=== PATIENT | female | born 1955 | race Caucasian/White ===

== ENCOUNTER 2024-02-11 12:13 | Observation (INO) ==
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
--- NOTE | 2024-02-11 13:11 | EKG ---
Test Reason : hypertension, short of breath Blood Pressure : */* mmHG Vent. Rate : 51 BPM Atrial Rate : 51 BPM P-R Int : 162 ms QRS Dur : 94 ms QT Int : 478 ms P-R-T Axes : 76 90 84 degrees QTc Int : 440 ms Sinus bradycardia Rightward axis Low voltage QRS Incomplete right bundle branch block Cannot rule out Anterior infarct , age undetermined Abnormal ECG No previous ECGs available Confirmed by Mesfin Richards MD ([id number]) on 02/11/2024 5:34:24 PM Referred By: Confirmed By: Mesfin Richards MD
[2024-02-11 13:55] LABS: BASOPHILS # (AUTO) 0.1 X10^3/uL (0.0-0.1); BASOPHILS % (AUTO) 0.7 % (0.2-1.0); HEMATOCRIT 33.6 % (36.0-47.0); LYMPHOCYTES # (AUTO) 1.4 X10^3/uL (1.3-2.9); LYMPHOCYTES % (AUTO) 17.9 % (21.0-51.0); MEAN CORPUSCULAR HEMOGLOBIN 32.3 pg (27.0-34.0); MEAN CORPUSCULAR HGB CONC 32.8 g/dL (33.0-35.0); MEAN CORPUSCULAR VOLUME 98.5 fL (80.0-100.0); MEAN PLATELET VOLUME 8.6 fL (7.4-11.0); MONOCYTES # (AUTO) 0.6 x10^3/uL (0.3-0.8); MONOCYTES % (AUTO) 7.1 % (0.0-13.0); NEUTROPHILS # (AUTO) 5.9 x10^3/uL (2.2-4.8); NEUTROPHILS % (AUTO) 74.3 % (42.0-75.0); PLATELET COUNT 221 X10^3/uL (150.0-450.0); RED BLOOD COUNT 3.41 X10^6/uL (3.5-5.4); RED CELL DISTRIBUTION WIDTH 13.4 % (11.6-16.5); WHITE BLOOD COUNT 7.9 X10^3/uL (3.6-10.0)
--- NOTE | 2024-02-11 14:15 | VAS ---
EXAM:LOWER EXT VENOUS, UNILATERALHISTORY:LLE EDEMA;COMPARISON:NoneTECHNIQUE:Multiple north scale and color flow Doppler images of the deep venous system were obtained of the left lower extremity.FINDINGS:The deep venous system of the left lower extremity was evaluated from the level of the common femoral vein through the popliteal vein. Normal color flow and augmentation can be observed. In addition, normal compression is seen throughout the deep venous system.IMPRESSION:Negative for DVT.THIS IS AN ELECTRONICALLY VERIFIED FINAL [id number]/11/2024 2:12 PM - Electronically signed by Del Rodrigues MD
--- NOTE | 2024-02-11 14:22 | RAD ---
EXAM:CHEST, 1 VIEWHISTORY:SOB;COMPARISON:No relevant prior studies were available for comparison at the time of interpretation.TECHNIQUE:CHEST, 1 VIEWFINDINGS:Chest:Lines and tubes: Cardiac leads overlie the chest.Mediastinum: Cardiomegaly.Pulmonary vessels: There is pulmonary vascular congestion.Lung golden: No suspicious airspace opacity.Pleura: No effusion. No pneumothorax.Bones and soft tissues: No acute osseous or soft tissue abnormality.IMPRESSION:1. Findings suggest heart failureTHIS IS AN ELECTRONICALLY VERIFIED FINAL [id number]/2024 2:20 PM - Electronically signed by Michele Sequeira MD
[2024-02-11 14:44] LABS: ALANINE AMINOTRANSFERASE 30 Units/L (12-78); ALBUMIN 3.1 g/dL (3.4-5.0); ALKALINE PHOSPHATASE 107 Units/L (46-116); ASPARTATE AMINO TRANSFERASE 27 Units/L (15-37); BLOOD UREA NITROGEN 13 mg/dL (7-18); CALCIUM 8.2 mg/dL (8.5-10.1); CARBON DIOXIDE 36.1 mmol/L (21-32); CHLORIDE 105 mmol/L (98-107); COR CA(FOR HYPOALB) 8.9 mg/dL (8.5-10.1); CREATINE KINASE 48 Units/L (26-192); CREATININE 0.96 mg/dL (0.55-1.02); GLUCOSE 97 mg/dL (65-99); POTASSIUM 3.7 mmol/L (3.5-5.1); SODIUM 142 mmol/L (136-145); T4 (THYROXINE) 9.2 ug/dL (4.7-13.3); TOTAL PROTEIN 6.9 g/dL (6.4-8.2); TSH (3RD GENERATION) 1.747 uIU/mL (0.358-3.74); eGFR NON BLACK RACES > 60 (>60)
[2024-02-11] MEDS: APRESOLINE INJ 20 MG VIAL IVP ONE (14:44)
[2024-02-11] MEDS: LASIX IVP ONE (14:46)
[2024-02-11] MEDS: ZOFRAN INJ 4 MG VIAL IVP ONE (16:02)
--- NOTE | 2024-02-11 16:29 | EKG ---
Test Reason : dyspnea Blood Pressure : */* mmHG Vent. Rate : 57 BPM Atrial Rate : 57 BPM P-R Int : 180 ms QRS Dur : 100 ms QT Int : 470 ms P-R-T Axes : 64 87 94 degrees QTc Int : 457 ms Sinus bradycardia with sinus arrhythmia Incomplete right bundle branch block Nonspecific ST and T wave abnormality Abnormal ECG When compared with ECG of 11-FEB-2024 13:07, (Unconfirmed) No significant change was found Confirmed by Mesfin Richards MD ([id number]) on 02/11/2024 5:33:40 PM Referred By: Confirmed By: Mesfin Richards MD
[2024-02-11 17:03] LABS: ALANINE AMINOTRANSFERASE 33 Units/L (12-78); ALBUMIN 3.5 g/dL (3.4-5.0); ALKALINE PHOSPHATASE 116 Units/L (46-116); ASPARTATE AMINO TRANSFERASE 30 Units/L (15-37); BLOOD UREA NITROGEN 13 mg/dL (7-18); CALCIUM 8.4 mg/dL (8.5-10.1); CARBON DIOXIDE 34.1 mmol/L (21-32); CHLORIDE 103 mmol/L (98-107); CREATININE 0.99 mg/dL (0.55-1.02); GLUCOSE 107 mg/dL (65-99); SODIUM 141 mmol/L (136-145); TOTAL PROTEIN 7.6 g/dL (6.4-8.2); eGFR NON BLACK RACES 60 (>60)
[2024-02-11] MEDS ORDERED: NITROSTAT SL PRN (20:09)
[2024-02-11] MEDS: ZOFRAN INJ 4 MG VIAL ONE (20:14)
[2024-02-11] MEDS: TYLENOL 500 MG TAB EXTRA STRENGTH PO ONE (20:29)
[2024-02-11 20:56] VITALS: BMI 37.0
--- NOTE | 2024-02-11 20:59 | EKG ---
Test Reason : GARCIA, SOB, CHF exacerbation Blood Pressure : */* mmHG Vent. Rate : 59 BPM Atrial Rate : 59 BPM P-R Int : 164 ms QRS Dur : 92 ms QT Int : 518 ms P-R-T Axes : 70 83 96 degrees QTc Int : 512 ms Sinus bradycardia Incomplete right bundle branch block Nonspecific ST and T wave abnormality Prolonged QT Abnormal ECG When compared with ECG of 11-FEB-2024 16:25, QT has lengthened Confirmed by Mesfin Richards MD ([id number]) on 02/15/2024 8:14:38 AM Referred By: Confirmed By: Mesfin Richards MD
[2024-02-11] MEDS: CONSULT PHARMACY - POTASSIUM & MAGNESIUM XX SCH (23:40)
[2024-02-12] MEDS: K-DUR TAB 20 MEQ PO SCH ×2 (01:26→08:27)
[2024-02-12 05:57] LABS: BASOPHILS # (AUTO) 0.1 X10^3/uL (0.0-0.1); BASOPHILS % (AUTO) 1.1 % (0.2-1.0); HEMATOCRIT 33.7 % (36.0-47.0); HEMOGLOBIN 11.1 g/dL (12.0-16.0); LYMPHOCYTES # (AUTO) 1.9 X10^3/uL (1.3-2.9); LYMPHOCYTES % (AUTO) 25.3 % (21.0-51.0); MEAN CORPUSCULAR HEMOGLOBIN 32.3 pg (27.0-34.0); MEAN CORPUSCULAR HGB CONC 32.8 g/dL (33.0-35.0); MEAN CORPUSCULAR VOLUME 98.4 fL (80.0-100.0); MONOCYTES # (AUTO) 0.6 x10^3/uL (0.3-0.8); MONOCYTES % (AUTO) 7.9 % (0.0-13.0); NEUTROPHILS # (AUTO) 4.8 x10^3/uL (2.2-4.8); NEUTROPHILS % (AUTO) 65.7 % (42.0-75.0); PLATELET COUNT 223 X10^3/uL (150.0-450.0); RED BLOOD COUNT 3.43 X10^6/uL (3.5-5.4); RED CELL DISTRIBUTION WIDTH 13.3 % (11.6-16.5); WHITE BLOOD COUNT 7.4 X10^3/uL (3.6-10.0)
[2024-02-12 06:15] LABS: ALANINE AMINOTRANSFERASE 28 Units/L (12-78); ALBUMIN 3.1 g/dL (3.4-5.0); ALKALINE PHOSPHATASE 102 Units/L (46-116); ASPARTATE AMINO TRANSFERASE 25 Units/L (15-37); BLOOD UREA NITROGEN 15 mg/dL (7-18); CALCIUM 8.4 mg/dL (8.5-10.1); CHLORIDE 104 mmol/L (98-107); CHOL/HDL RATIO 3.1 (0.0-5.0); CHOLESTEROL 120 mg/dL (0-200); COR CA(FOR HYPOALB) 9.1 mg/dL (8.5-10.1); CREATININE 0.92 mg/dL (0.55-1.02); GLUCOSE 94 mg/dL (65-99); HDL CHOLESTEROL 39 mg/dL (40-60); MAGNESIUM 1.9 mg/dL (2.0-2.9); POTASSIUM 3.2 mmol/L (3.5-5.1); SODIUM 142 mmol/L (136-145); TOTAL PROTEIN 6.9 g/dL (6.4-8.2); TRIGLYCERIDES 71 mg/dL (0-150); eGFR NON BLACK RACES > 60 (>60)
[2024-02-12] MEDS ORDERED: CONSULT PHARMACY - POTASSIUM & MAGNESIUM XX SCH (07:00)
[2024-02-12] MEDS: ZESTRIL TAB 10 MG PO SCH (08:26)
[2024-02-12] MEDS: MAG-OX TAB PO SCH (08:27)
[2024-02-12] MEDS: LASIX IVP SCH (08:28)
[2024-02-12] MEDS: ASPIRIN PO SCH (08:28)
--- NOTE | 2024-02-12 15:41 | NM ---
EXAM: LIMITED NUCLEAR MEDICINE PERFUSION LUNG EXAMHISTORY: Shortness of breath. High blood pressure. History of pulmonary embolism.COMPARISON: CXR dated February 11, 2024TECHNIQUE: A nuclear medicine perfusion scan was then performed with the administration of 5.8 millicuries of technetium 99 MAA intravenously. Imaging was performed with multiple projections of the perfusion scan.FINDINGS:The exam is limited; perfusion scan only. No ventilation scan submitted for interpretation.There is a large central defect corresponding to moderate to severe cardiomegaly seen on CXR.There is no gross subsegmental, segmental, or lobar perfusion defect reminiscent of pulmonary embolic disease seen. Considered negative perfusion lung scan.Consider follow-up evaluation with a CTA chest for optimal assessment if the patient can tolerate the procedure and there is sufficiently high clinical suspicion.IMPRESSION:1. Cardiomegaly.2. Otherwise negative Perfusion lung scan.3. Consider follow-up evaluation with a CTA chest for optimal assessment if the patient can tolerate the procedure and there is sufficiently high clinical suspicion.THIS IS AN ELECTRONICALLY VERIFIED FINAL [id number]/12/2024 3:38 PM - Electronically signed by Clemente Solano MD
[2024-02-12 19:56] VITALS: RESP 18
[2024-02-13 06:23] LABS: BASOPHILS # (AUTO) 0.1 X10^3/uL (0.0-0.1); BASOPHILS % (AUTO) 0.8 % (0.2-1.0); HEMATOCRIT 33.8 % (36.0-47.0); HEMOGLOBIN 11.4 g/dL (12.0-16.0); LYMPHOCYTES # (AUTO) 1.4 X10^3/uL (1.3-2.9); LYMPHOCYTES % (AUTO) 20.8 % (21.0-51.0); MEAN CORPUSCULAR HEMOGLOBIN 33.1 pg (27.0-34.0); MEAN CORPUSCULAR HGB CONC 33.6 g/dL (33.0-35.0); MEAN CORPUSCULAR VOLUME 98.7 fL (80.0-100.0); MEAN PLATELET VOLUME 8.8 fL (7.4-11.0); MONOCYTES # (AUTO) 0.6 x10^3/uL (0.3-0.8); MONOCYTES % (AUTO) 8.2 % (0.0-13.0); NEUTROPHILS # (AUTO) 4.7 x10^3/uL (2.2-4.8); NEUTROPHILS % (AUTO) 70.2 % (42.0-75.0); PLATELET COUNT 193 X10^3/uL (150.0-450.0); RED BLOOD COUNT 3.43 X10^6/uL (3.5-5.4); RED CELL DISTRIBUTION WIDTH 13.5 % (11.6-16.5); WHITE BLOOD COUNT 6.8 X10^3/uL (3.6-10.0)
[2024-02-13 06:41] LABS: ALANINE AMINOTRANSFERASE 22 Units/L (12-78); ALKALINE PHOSPHATASE 98 Units/L (46-116); ASPARTATE AMINO TRANSFERASE 20 Units/L (15-37); BLOOD UREA NITROGEN 16 mg/dL (7-18); CALCIUM 8.1 mg/dL (8.5-10.1); CARBON DIOXIDE 38.1 mmol/L (21-32); CHLORIDE 104 mmol/L (98-107); COR CA(FOR HYPOALB) 8.9 mg/dL (8.5-10.1); CREATININE 1.01 mg/dL (0.55-1.02); GLUCOSE 93 mg/dL (65-99); MAGNESIUM 2.1 mg/dL (2.0-2.9); POTASSIUM 3.3 mmol/L (3.5-5.1); SODIUM 142 mmol/L (136-145); TOTAL PROTEIN 6.6 g/dL (6.4-8.2); eGFR NON BLACK RACES 58 (>60)
[2024-02-13] MEDS ORDERED: CONSULT PHARMACY - POTASSIUM & MAGNESIUM XX SCH (07:00)
[2024-02-13 07:32] VITALS: BP 168/80; PULSE 65; TEMP 98.1; O2SAT 93
[2024-02-13] MEDS: K-DUR TAB 20 MEQ PO SCH (08:18)
[2024-02-13] MEDS: LOPRESSOR TAB 50 MG PO SCH (09:39)
[2024-02-13] MEDS: PLAQUENIL PO SCH (09:40)
[2024-02-13] MEDS: PROTONIX TAB 40 MG PO SCH (09:40)
[2024-02-13] MEDS: CELEXA PO SCH (09:56)
[2024-02-13] MEDS ORDERED: ZOCOR TAB 10 MG PO SCH (21:00)
--- NOTE | 2024-02-15 07:59 | RAD ---
EXAMINATION: CHEST, 1 VIEW HISTORY: CHF, GARCIA, SOB; . COMPARISON STUDY: Chest x-ray 02/11/2024 TECHNIQUE: Single semi-erect AP view of the chest FINDINGS: Lungs are expanded. Patchy bibasilar infiltrates. [id number] cardiac silhouette enlargement. Normal pulmonary vascular pattern. Bones are intact. IMPRESSION: Patchy infiltrates in the pulmonary bases. Cardiac silhouette enlargement. THIS IS AN ELECTRONICALLY VERIFIED FINAL REPORT 02/15/2024 7:55 AM - Electronically signed by Aimee Frias MD
== END 2024-02-13 10:35 | disposition home or self-care (01) ==
LOC: MED/SURG 12:13 → ER 12:13 → MED/SURG 20:38
PROVIDERS: ADMIT Obstetrics & Gynecology Obstetrics; ATTEND Obstetrics & Gynecology Obstetrics

== ENCOUNTER 2025-01-16 11:23 | Inpatient (IN) ==
--- NOTE | 2025-01-16 11:40 | EKG ---
Test Reason : chest pain Blood Pressure : */* mmHG Vent. Rate : 128 BPM Atrial Rate : * BPM P-R Int : * ms QRS Dur : 90 ms QT Int : 272 ms P-R-T Axes : * 87 54 degrees QTc Int : 397 ms Atrial fibrillation with rapid ventricular response Low voltage QRS Nonspecific T wave abnormality Abnormal ECG When compared with ECG of 11-FEB-2024 20:43, Atrial fibrillation has replaced Sinus rhythm Vent. rate has increased BY 69 BPM Confirmed by Mesfin Richards MD ([id number]) on 01/17/2025 5:50:22 AM Referred By: Confirmed By: Mesfin Richards MD
[2025-01-16 11:44] LABS: MEAN PLATELET VOLUME 7.9 fL (7.4-11.0); RED CELL DISTRIBUTION WIDTH 13.0 % (11.6-16.5)
[2025-01-16 11:48] VITALS: BMI 38.7
[2025-01-16] MEDS: ELIQUIS PO SCH (11:52)
[2025-01-16] MEDS: LOPRESSOR INJ 5 MG AMP IVP ONE (11:52)
--- NOTE | 2025-01-16 11:54 | DR.CP ---
HPI Time Seen Time Seen by Provider: 01/16/25 11:42 PCP Primary Care Physician: Complaint Chief Complaint Doctor Comments: Patient with complaint of chest pain, shortness of breath and getting lightheaded over the last 4 days to a week. Patient's heart rate has gone up to 180 at home. Denies fever. Chief Complaint:: pt states that she has been having chest pain x4 days, SOB x1week and has been feeling dizzy. states that her heart rate has gotten up to 180 at home. COVID-19 Coronavirus risk:travel/contact w/high risk person: No Has patient experienced Coronavirus symptoms: No Source History Provided: Patient Mode of Arrival Mode of Arrival: Ambulatory Timing Onset of Chief Complaint: 01/09/25 PMH PMH Past Medical History: Yes Past Medical History: Anxiety, Depression, GERD and Hypertension Past Surgical History: Yes Surgical History: Cholecystectomy Family History History of Family Medical Conditions: Yes Family Medical History: Cancer, Coronary Artery Disease and Hypertension Social History Type of Tobacco Use: None Alcohol Use: None Do you use any recreational Drugs:: No Lives With: Spouse Lives Where: Home Travel Risk Coronavirus risk:travel/contact w/high risk person: No Has patient experienced Coronavirus symptoms: No Infectious screening Have you traveled outside the country in the last 6 months?: No Isolation: Standard ROS Review of Systems Constitutional: No Symptoms Reported Eyes: No Symptoms Reported ENTM: No Symptoms Reported Respiratoy: See HPI and Short of Breath; negative Wheezing Cardiovascular: See HPI, Chest Pain and Palpitations; negative Edema or Syncope Gastrointestinal/Abdominal: No Symptoms Reported Genitourinary: No Symptoms Reported Neurological: No Symptoms Reported Musculoskeletal: No Symptoms Reported Integumentary: No Symptoms Reported Hematologic/Lymphatic: No Symptoms Reported Endocrine: No Symptoms Reported Psychiatric: No Symptoms Reported All Other Systems: Reviewed and Negative PE Vitals Vitals: Vital Signs Temperature 98.3 F Pulse Rate 85 Pulse Rate 91 Pulse Rate 87 Pulse Rate 95 Pulse Rate 97 Pulse Rate 104 Pulse Rate 102 Pulse Rate 116 Pulse Rate 118 Pulse Rate 121 Pulse Rate 125 Pulse Rate 122 Pulse Rate 125 Pulse Rate 123 Pulse Rate 126 Pulse Rate 125 Pulse Rate 125 Pulse Rate 130 Pulse Rate 123 Respiratory Rate 19 Respiratory Rate 19 Respiratory Rate 20 Respiratory Rate 21 Respiratory Rate 22 Respiratory Rate 31 Respiratory Rate 25 Respiratory Rate 26 Respiratory Rate 26 Respiratory Rate 25 Respiratory Rate 22 Respiratory Rate 24 Respiratory Rate 25 Respiratory Rate 41 Respiratory Rate 54 Respiratory Rate 28 Respiratory Rate 22 Respiratory Rate 31 Blood Pressure 107/66 Blood Pressure 104/58 Blood Pressure 127/62 Blood Pressure 119/62 Blood Pressure 124/65 Blood Pressure 111/72 Blood Pressure 151/74 Blood Pressure 174/96 Blood Pressure 174/96 Blood Pressure 126/76 Blood Pressure 125/92 Blood Pressure 125/92 Blood Pressure 119/89 Blood Pressure 119/89 O2 Sat by Pulse Oximetry 91 O2 Sat by Pulse Oximetry 89 O2 Sat by Pulse Oximetry 91 O2 Sat by Pulse Oximetry 90 O2 Sat by Pulse Oximetry 94 O2 Sat by Pulse Oximetry 93 O2 Sat by Pulse Oximetry 95 O2 Sat by Pulse Oximetry 94 O2 Sat by Pulse Oximetry 93 O2 Sat by Pulse Oximetry 98 O2 Sat by Pulse Oximetry 93 O2 Sat by Pulse Oximetry 96 O2 Sat by Pulse Oximetry 94 O2 Sat by Pulse Oximetry 93 O2 Sat by Pulse Oximetry 94 O2 Sat by Pulse Oximetry 95 O2 Sat by Pulse Oximetry 95 O2 Sat by Pulse Oximetry 94 General Limitations: No Limitations General Appearance: Alert and In No Apparent Distress Head Head Exam: Normal Inspection Eyes Eye exam: Normal Appearance ENT ENT Exam: Normal Exam Chest Chest Inspection: Normal Inspection Respiratory Respiratory Exam: Normal Lung Sounds Bilat Cardiovascular Cardiovascular Exam: Tachycardia and Irregular Rhythm Pulse: Normal Edema: Normal Abdominal Exam Abdominal Exam: Normal Inspection, Normal Bowel Sounds and Soft Extremities Extremities Exam: Normal Inspection Back Back Exam: Normal Inspection Neurologic Neurological Exam: Alert and Oriented X3 Psychiatric Psychiatric Exam: Normal Affect and Normal Mood Skin Skin Exam: Warm, Dry, Intact and Normal Color COURSE Treatment Treatment: Discussed results of workup with patient. Patient agreeable with admission. Patient feeling better since Cardizem drip started. Consultation Called: 15:09 Consultation Comments: Discussed case with Dr. Lentz and he is agreeable to admission.Patient has elevated D-dimer but already on Eliquis and Dr. Lentz will await results of CTA of the chest. ROR Labs Reviewed Laboratory Results Reviewed?: Yes 01/16/25 11:35 01/16/25 11:35 Laboratory: WBC 7.7 X10^3/uL (3.6-10.0) 01/16/25 11:35 RBC 3.59 X10^6/uL (3.5-5.4) 01/16/25 11:35 Hgb 11.7 g/dL (12.0-16.0) L 01/16/25 11:35 Hct 34.8 % (36.0-47.0) L 01/16/25 11:35 MCV 96.9 fL (80.0-100.0) 01/16/25 11:35 MCH 32.6 pg (27.0-34.0) 01/16/25 11:35 MCHC 33.6 g/dL (33.0-35.0) 01/16/25 11:35 RDW 13.0 % (11.6-16.5) 01/16/25 11:35 Plt Count 232 X10^3/uL (150.0-450.0) 01/16/25 11:35 MPV 7.9 fL (7.4-11.0) 01/16/25 11:35 Neut % (Auto) 62.8 % (42.0-75.0) 01/16/25 11:35 Lymph % (Auto) 29.7 % (21.0-51.0) 01/16/25 11:35 [place] % (Auto) 6.5 % (0.0-13.0) 01/16/25 11:35 Eos % (Auto) 0.1 % (0.9-2.9) L 01/16/25 11:35 Baso % (Auto) 0.9 % (0.2-1.0) 01/16/25 11:35 Neut # (Auto) 4.8 x10^3/uL (2.2-4.8) 01/16/25 11:35 Lymph # (Auto) 2.3 X10^3/uL (1.3-2.9) 01/16/25 11:35 [place] # (Auto) 0.5 x10^3/uL (0.3-0.8) 01/16/25 11:35 Eos # (Auto) 0.0 x10^3/uL (0.0-0.2) 01/16/25 11:35 Baso # (Auto) 0.1 X10^3/uL (0.0-0.1) 01/16/25 11:35 Absolute Nucleated RBC 0.1 /100WBC 01/16/25 11:35 PT 13.3 SECONDS (11.8-14.3) 01/16/25 11:35 INR Target Range - 09/22/25 11:35 INR 1.00 (0.8-1.3) 01/16/25 11:35 APTT 26.4 SECONDS (22.9-36.5) 01/16/25 11:35 PTT Comment - 01/16/25 11:35 D-Dimer 1.06 ug/ml (0.0-0.57) H 01/16/25 11:35 Sodium 144 mmol/L (136-145) 01/16/25 11:35 Corrected Sodium TNP 01/16/25 11:35 Potassium 3.2 mmol/L (3.5-5.1) L 01/16/25 11:35 Chloride 105 mmol/L (98-107) 01/16/25 11:35 Carbon Dioxide 33.3 mmol/L (21-32) H 01/16/25 11:35 BUN 12 mg/dL (7-18) 01/16/25 11:35 Creatinine 1.27 mg/dL (0.55-1.02) H 01/16/25 11:35 Est GFR (MDRD) Af Amer 54 (>60) L 01/16/25 11:35 Est GFR (MDRD) Non-Af 45 (>60) L 01/16/25 11:35 Glucose 93 mg/dL (65-99) 01/16/25 11:35 Calcium 8.6 mg/dL (8.5-10.1) 01/16/25 11:35 Corrected Calcium 9.2 mg/dL (8.5-10.1) 01/16/25 11:35 Total Bilirubin 0.40 mg/dL (0.2-1.0) 01/16/25 11:35 AST 29 Units/L (15-37) 01/16/25 11:35 ALT 35 Units/L (12-78) 01/16/25 11:35 Alkaline Phosphatase 92 Units/L (46-116) 01/16/25 11:35 Creatine Kinase 54 Units/L (26-192) 01/16/25 11:35 Troponin I High Sens 11.6 ng/L (4.0-60.0) 01/16/25 13:32 B-Natriuretic Peptide 687 pg/mL (0-79) H 01/16/25 11:35 Total Protein 7.1 g/dL (6.4-8.2) 01/16/25 11:35 Albumin 3.2 g/dL (3.4-5.0) L 01/16/25 11:35 Globulin 3.9 g/dL (2.5-4.5) 01/16/25 11:35 Albumin/Globulin Ratio 0.8 Ratio (1.1-2.1) L 01/16/25 11:35 Other Results Comments: [id number] 1955 Sex: F Location: ER Order Number(s): [id number] Procedure(s):CHEST, 1 VIEW X-RAY Ordering Physician: Dario Nino Primary Care: RENUKA MURRIETA Service Date: 01/16/25 Service Time: 1127 EXAM: CHEST, 1 VIEW HISTORY: CHEST PAIN ; COMPARISON: 02/13/2024 TECHNIQUE: AP .br.br.br technique. No focal consolidation, pleural effusion, or visible pneumothorax. IMPRESSION: No acute cardiopulmonary findings. THIS IS AN ELECTRONICALLY VERIFIED FINAL REPORT 01/16/2025 12:34 PM - Electronically signed by Andre Collier MD EKG Rate: 128 [place]: Normal Rhythm: Afib Block: None Hypertrophy: None ST: Normal Opioid Opioid Risk Tool Age (Naseem box if 16-45): No History of Preadolescent Sexual Abuse: No Total: 0 Total Score Risk Category: Low Risk Copyright: [facility] predicting aberrant behaviors Discharge Plan Diagnosis Discharge Problem: Atrial fibrillation with RVR, Hypokalemia, D-dimer, elevated Discharge Plan Patient Disposition: ADMITTED INPATIENT Condition: Stable Prescriptions: No Action gabapentin 300 mg capsule 300 mg PO TID simvastatin 10 mg tablet 10 mg PO QPM citalopram [Celexa] 40 mg Tablet 40 mg PO DAILY hydroxychloroquine 200 mg tablet 200 mg PO BID Health Concerns: Post Hospitalization: new medications and changes needed to prevent readmission or further decline. Pt educated and given instructions on all concerns. Plan of Treatment: Continue with present treatment and follow up plan. Pt is to keep follow up appointment as instructed and take medications as ordered. Orders to Discharge Patient Discharge Orders: Transfer (Routine); Ordered 01/16/25 Ordered By: Dario Nino Follow ups/Referrals Follow ups/Referrals: RENUKA MURRIETA [Primary Care Provider] - 3 days Instructions Stand Alone Forms: Find Help Web Site, Post Hospital Follow Up Care Print Language: TONGAN
[2025-01-16 11:59] LABS: COR CA(FOR HYPOALB) 9.2 mg/dL (8.5-10.1); CREATININE 1.27 mg/dL (0.55-1.02); eGFR NON BLACK RACES 45 (>60)
[2025-01-16 12:01] LABS: INR 1.00 (0.8-1.3)
--- NOTE | 2025-01-16 12:37 | RAD ---
EXAM: CHEST, 1 VIEW HISTORY: CHEST PAIN ; COMPARISON: 02/13/2024 TECHNIQUE: AP .br.br.br technique. No focal consolidation, pleural effusion, or visible pneumothorax. IMPRESSION: No acute cardiopulmonary findings. THIS IS AN ELECTRONICALLY VERIFIED FINAL REPORT 01/16/2025 12:34 PM - Electronically signed by Andre Collier MD
[2025-01-16] MEDS: CARDIZEM INJ 125 MG VIAL 125 MG in NS 100 ML IV 100 ML IV PRN (13:08)
--- NOTE | 2025-01-16 15:38 | CT ---
EXAM: CT PULMONARY ANGIOGRAM CHEST WITH CONTRAST (PE PROTOCOL) HISTORY: DYSPNEA, ELEV D DIMER; COMPARISON: None. TECHNIQUE: Axial CT images were obtained through the chest after the intravenous administration of contrast. Coronal and sagittal reformatted images were included. Maximum intensity projection (MIP) images were performed per pulmonary angiogram protocol. All CT scans at this facility use dose modulation, iterative reconstruction, and/or weight based dosing when appropriate to reduce radiation dose to as low as reasonably achievable. FINDINGS: PULMONARY ARTERIES: No filling defects in the pulmonary arteries to suggest emboli. Pulmonary artery trunk diameter measures 4.3 cm suggesting pulmonary arterial hypertension. CARDIOVASCULAR: The contrast bolus density within the thoracic aorta does not allow for accurate evaluation of dissection. No thoracic aortic aneurysm. 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 Cardiomegaly. PERICARDIAL EFFUSION: None. LYMPH NODES: No pathologically enlarged nodes. PLEURAL SPACES: No evidence for pleural effusion.No evidence for pneumothorax. LUNGS: Mild ground-glass haziness throughout the lung golden bilaterally is nonspecific and may be due to interstitial edema or interstitial pneumonitis, correlate clinically. Thin linear band of scarring or atelectasis in the left lower lobe. AIRWAYS: The larger central visualized airways demonstrate no evidence for endobronchial filling defects. UPPER ABDOMEN: No acute findings. BONES: Degenerative changes of the spine. IMPRESSION: No evidence of pulmonary arterial embolism. Pulmonary artery trunk diameter measures 4.3 cm suggesting pulmonary arterial hypertension. 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 Cardiomegaly. Mild ground-glass haziness throughout the lung golden bilaterally is nonspecific and may be due to interstitial edema or interstitial pneumonitis, correlate clinically. THIS IS AN ELECTRONICALLY VERIFIED FINAL REPORT 01/16/2025 3:35 PM - Electronically signed by Michele Carpenter DO
[2025-01-16] MEDS ORDERED: ULTRAM PO PRN (16:32)
[2025-01-16] MEDS ORDERED: TYLENOL 325 MG TAB PO PRN (16:32)
[2025-01-16] MEDS ORDERED: ZOFRAN INJ 4 MG VIAL IVP PRN (16:32)
[2025-01-16] MEDS: OMNIPAQUE 350 mg/mL 100 mL BTL 100 ML ONE (16:56)
[2025-01-16] MEDS: OMNIPAQUE 350 mg/mL 50 mL BTL 50 ML ONE (16:57)
[2025-01-16] MEDS: CARDIZEM INJ 125 MG VIAL ONE (16:57)
[2025-01-16] MEDS: NS 100 ML IV 100 ML ONE (16:58)
[2025-01-16] MEDS: CONSULT PHARMACY - POTASSIUM & MAGNESIUM XX SCH (17:10)
[2025-01-16] MEDS: TOPROL XL PO SCH (17:38)
[2025-01-16] MEDS: TOPROL XL PO ONE (17:54)
[2025-01-16] MEDS: K-DUR TAB 20 MEQ PO SCH (17:59)
[2025-01-16] MEDS: NORCO 5/325 MG TAB PO PRN (20:51)
[2025-01-16] MEDS: ZOCOR TAB 10 MG PO SCH (20:51)
[2025-01-17 04:42] LABS: MEAN PLATELET VOLUME 7.9 fL (7.4-11.0); RED CELL DISTRIBUTION WIDTH 13.2 % (11.6-16.5)
[2025-01-17 04:58] LABS: COR CA(FOR HYPOALB) 9.0 mg/dL (8.5-10.1); CREATININE 1.13 mg/dL (0.55-1.02); eGFR NON BLACK RACES 51 (>60)
[2025-01-17] MEDS ORDERED: TOPROL XL PO ONE (07:28)
[2025-01-17] MEDS ORDERED: CELEXA ONE (07:34)
[2025-01-17] MEDS: CELEXA PO SCH (08:50)
[2025-01-17] MEDS: TOPROL XL PO ONE (10:35)
[2025-01-17] MEDS: NEURONTIN CAP 300 MG PO SCH (10:36)
[2025-01-17] MEDS: LOPRESSOR TAB 50 MG PO ONE (14:51)
[2025-01-17] MEDS: LASIX PO ONE (14:51)
[2025-01-17] MEDS: LOPRESSOR INJ 5 MG AMP IVP ONE (17:41)
[2025-01-17] MEDS: PHARMACY CONSULT XX SCH (19:20)
[2025-01-17] MEDS ORDERED: CORDARONE TAB 200 MG PO SCH (20:00)
[2025-01-17] MEDS: LOPRESSOR TAB 25 MG PO ONE (20:06)
[2025-01-17] MEDS: CARDIZEM INJ 125 MG VIAL 125 MG in NS 100 ML IV 100 ML IV PRN (20:11)
[2025-01-17] MEDS: PLAQUENIL PO SCH (21:42)
[2025-01-18] MEDS: LOPRESSOR TAB 25 MG PO SCH ×2 (01:26→21:36)
[2025-01-18 05:59] LABS: MEAN PLATELET VOLUME 8.1 fL (7.4-11.0); RED CELL DISTRIBUTION WIDTH 13.4 % (11.6-16.5)
[2025-01-18 06:16] LABS: COR CA(FOR HYPOALB) 9.2 mg/dL (8.5-10.1); COR NA(FOR HYPERGLY) 143 mmol/L (136-145); CREATININE 1.10 mg/dL (0.55-1.02); TSH (3RD GENERATION) 0.766 uIU/mL (0.358-3.74); eGFR NON BLACK RACES 53 (>60)
[2025-01-18] MEDS: LEXAPRO PO SCH (08:22)
[2025-01-18] MEDS: LEXAPRO ONE (08:27)
[2025-01-18] MEDS ORDERED: TOPROL XL PO SCH (09:00)
[2025-01-18] MEDS: LASIX IVP ONE (14:08)
[2025-01-18] MEDS: K-DUR TAB 20 MEQ PO ONE (14:08)
[2025-01-18] MEDS: PROTONIX INJ 40 MG VIAL IVP ONE (14:09)
[2025-01-18] MEDS: NEXTERONE IV 150 MG PREMIX* 150 MG/100 ML BAG IV ONE (14:40)
[2025-01-18] MEDS: DRUG FILTER EXTENSION SET ONE (14:40)
--- NOTE | 2025-01-18 14:44 | DR.CONSULT ---
CONSULT Consultation for Day of: Date: 01/18/25 Chief Complaint Chief Complaint: sob/fast hr Allergies Allergies Allergy/AdvReac Type Severity Reaction Status Date / Time baclofen Allergy Verified 01/17/25 17:02 Influenza Virus Vaccines Allergy Verified 01/17/25 17:02 prednisone Allergy Verified 01/17/25 17:02 Sulfa (Sulfonamide Allergy Verified 01/17/25 17:02 Antibiotics) (SULFA) History of Present Illness History of Present Illness: 69 yo female- cath 2020 w/o cad- has htn heart disease/pulm htn/diastolic chf when bp up- admitted for sob /fasr=t hr- found to be in afib- put on bb/ccb/doac- po lasix given Past Medical History Past Medical History: Anxiety, Depression, GERD and Hypertension Past Surgical History Surgical History: Cholecystectomy Family History Family Medical History: Diabetes Mellitus, Coronary Artery Disease and Hypertension Social History Does patient currently use any type of tobacco product: No Have you used tobacco products in the last 12 months: No Type of Tobacco Use: None Alcohol Use: None Drug Use: None Medications Home Medications: baclofen Allergy (Verified 01/17/25 17:02) Influenza Virus Vaccines Allergy (Verified 01/17/25 17:02) prednisone Allergy (Verified 01/17/25 17:02) Sulfa (Sulfonamide Antibiotics) (SULFA) Allergy (Verified 01/17/25 17:02) CONTINUE taking the following medications hydroxychloroquine 200 mg tablet 200 mg PO BID 01/16/25 [History] furosemide 20 mg tablet (Lasix) 20 mg PO QAM 01/17/25 [History] pantoprazole 40 mg tablet,delayed release 40 mg PO QDAY 01/17/25 [History] New Prescriptions apixaban 5 mg tablet (Eliquis) 5 mg PO BID #60 tabs 01/17/25 [Rx] escitalopram oxalate 20 mg tablet 20 mg PO QDAY #30 tabs 01/17/25 [Rx] metoprolol succinate 100 mg tablet,extended release 24 hr 150 mg (1.5 x 100 mg) PO DAILY #45 tabs 01/17/25 [Rx] Physical Exam Vital Signs: Vital Signs Temperature 97.9 F Temperature 97.9 F Temperature 97.9 F Pulse Rate 90 Pulse Rate 90 Pulse Rate 90 Pulse Rate 79 Pulse Rate 71 Pulse Rate 77 Pulse Rate 73 Pulse Rate 73 Pulse Rate 82 Pulse Rate 76 Pulse Rate 78 Pulse Rate 73 Pulse Rate 79 Pulse Rate 91 Pulse Rate 72 Pulse Rate 64 Pulse Rate 79 Pulse Rate 67 Pulse Rate 68 Pulse Rate 75 Pulse Rate 72 Pulse Rate 75 Pulse Rate 66 Pulse Rate 76 Pulse Rate 75 Pulse Rate 73 Pulse Rate 71 Pulse Rate 73 Pulse Rate 65 Respiratory Rate 43 Respiratory Rate 43 Respiratory Rate 32 Respiratory Rate 25 Respiratory Rate 21 Respiratory Rate 22 Respiratory Rate 23 Respiratory Rate 25 Respiratory Rate 22 Respiratory Rate 29 Respiratory Rate 32 Respiratory Rate 30 Respiratory Rate 40 Respiratory Rate 24 Respiratory Rate 36 Respiratory Rate 22 Respiratory Rate 36 Respiratory Rate 31 Respiratory Rate 30 Respiratory Rate 31 Respiratory Rate 32 Respiratory Rate 31 Respiratory Rate 28 Respiratory Rate 36 Respiratory Rate 41 Respiratory Rate 30 Respiratory Rate 27 Respiratory Rate 30 Respiratory Rate 30 Blood Pressure 123/85 Blood Pressure 123/85 Blood Pressure 116/90 Blood Pressure 118/80 Blood Pressure 142/97 Blood Pressure 133/92 Blood Pressure 133/92 Blood Pressure 123/86 Blood Pressure 123/86 O2 Sat by Pulse Oximetry 99 O2 Sat by Pulse Oximetry 99 O2 Sat by Pulse Oximetry 96 O2 Sat by Pulse Oximetry 97 O2 Sat by Pulse Oximetry 97 O2 Sat by Pulse Oximetry 95 O2 Sat by Pulse Oximetry 97 O2 Sat by Pulse Oximetry 97 O2 Sat by Pulse Oximetry 97 O2 Sat by Pulse Oximetry 97 O2 Sat by Pulse Oximetry 96 O2 Sat by Pulse Oximetry 98 O2 Sat by Pulse Oximetry 99 O2 Sat by Pulse Oximetry 99 O2 Sat by Pulse Oximetry 97 O2 Sat by Pulse Oximetry 98 O2 Sat by Pulse Oximetry 99 O2 Sat by Pulse Oximetry 98 O2 Sat by Pulse Oximetry 99 O2 Sat by Pulse Oximetry 99 O2 Sat by Pulse Oximetry 99 O2 Sat by Pulse Oximetry 99 O2 Sat by Pulse Oximetry 82 O2 Sat by Pulse Oximetry 89 O2 Sat by Pulse Oximetry 97 O2 Sat by Pulse Oximetry 95 mild sob mild wheeze irreg irreg few crackles 2/6 hsm mild edema labs: hct 34, d dimer 1.06 cr 1. tsh 0.7 ekg: afib echo: ef 45% mild/mod mr /flat septal motion from pa- elevated pa 50 big B atriums cxr: nad CTA: no clot/big PA c/w pulm HTN Plan (1) Atrial fibrillation with RVR: Status: Acute Plan: cut back BB due to wheezing/resptx- lasix- cont doc/ccb- add amio iv as big atrium bilaterally to help keep in sinus hopefully- marlene/cv tommorrow if still in afib (2) Hypertension: Status: Acute Plan: add back kevin that she took as outpt (3) Mitral regurgitation: Status: Acute Plan: lower bp w kevin/diuresis (4) Pulmonary hypertension: Status: Acute (5) Wheezing: Status: Acute Plan: diuresis/RT
[2025-01-18] MEDS: NEXTERONE IV 360 MG PREMIX* 360 MG/200 ML BAG IV PRN ×2 (14:57→21:21)
[2025-01-18] MEDS: ZOFRAN TAB 4 MG PO PRN (16:10)
[2025-01-18] MEDS: ZESTRIL TAB 10 MG PO SCH (21:36)
[2025-01-19 06:44] LABS: MEAN PLATELET VOLUME 7.9 fL (7.4-11.0); RED CELL DISTRIBUTION WIDTH 13.1 % (11.6-16.5)
[2025-01-19 06:53] LABS: COR CA(FOR HYPOALB) 8.6 mg/dL (8.5-10.1); CREATININE 1.61 mg/dL (0.55-1.02); eGFR NON BLACK RACES 34 (>60)
[2025-01-19] MEDS ORDERED: CORDARONE TAB 200 MG PO SCH (09:00)
[2025-01-19] MEDS: XOPENEX 1.25 MG/3 ML NEBULE NEB PRN (11:22)
--- NOTE | 2025-01-19 14:06 | CARDIOVERT ---
Cardioversion Note Date of Procedure: Date: 01/19/25 Note Cardioversion note: precardioversion DX: afib postcardioversion DX: sinus bradycardia Anesthesia per anesthesia Procedure: consent obtained. Once anesthesia kicked in, standard ANIBAL was preformed ruling out contraindication. 300 J of synchronous electricity was applied to chest converting her to sinus bradycardia- To note: with anesthesia she stopped breathing for awhile- her echo had PA pressures close to 60 and enlarged r heart- no doubt SALENA contributing to afib and needs to be quickly addressed. no complications . talking/moving all 4 post procedure. Final impression: Successful CV to sinus Plan: continue amiodorone/cont doac- keep bp under control and treat SALENA to help prevent recurrence.
--- NOTE | 2025-01-19 14:11 | NOTE.SOAP ---
Soap Note Note for Day of Date of Exam: 01/19/25 Subjective Data Subjective Data: successful CV to nsr- no doubt sleep apnea playing large part of afib Assessment Assessment: afib: s/p cv, SALENA- pulm htn/big R heart /htn Plan Plan: Continue doac/amio load 200 bid for month- needs sleep apnea study and treatment breanna, f/u me in few weeks
[2025-01-19] MEDS: CORDARONE TAB 200 MG PO SCH (17:50)
[2025-01-19] MEDS: NS 500 ML IV 500 ML IV ONE ×3 (18:10→18:51)
[2025-01-19] MEDS: NS 1,000 ML IV 1,000 ML ONE (18:50)
[2025-01-19] MEDS: DIPRIVAN VIAL 20 ML ONE (18:51)
[2025-01-20 05:03] LABS: MEAN PLATELET VOLUME 8.3 fL (7.4-11.0); RED CELL DISTRIBUTION WIDTH 13.2 % (11.6-16.5)
[2025-01-20 05:24] LABS: COR CA(FOR HYPOALB) 9.3 mg/dL (8.5-10.1); COR NA(FOR HYPERGLY) 143.0 mmol/L (136-145); CREATININE 1.61 mg/dL (0.55-1.02); eGFR NON BLACK RACES 34.0 (>60)
[2025-01-20] MEDS: LEXAPRO ONE (09:51)
[2025-01-20 12:27] VITALS: BP 119/63; PULSE 60; RESP 24; O2SAT 92
[2025-01-20 14:24] VITALS: TEMP 98.8
== END 2025-01-20 13:55 | disposition home or self-care (01) | DRG 309 ==
LOC: ER 11:23 → ICU 15:47 → INTOOBSV 15:47 → ICU 16:10
PROVIDERS: ADMIT Obstetrics & Gynecology Obstetrics; ATTEND Obstetrics & Gynecology Obstetrics
DX: R06.2 Wheezing; R79.1 Abnormal coagulation profile; I48.91 Unspecified atrial fibrillation; R42 Dizziness and giddiness; F41.8 Other specified anxiety disorders; I50.30 Unspecified diastolic (congestive) heart failure; R07.89 Other chest pain; F32.89 Other specified depressive episodes; I34.0 Nonrheumatic mitral (valve) insufficiency; E83.51 Hypocalcemia; I27.20 Pulmonary hypertension, unspecified; R94.31 Abnormal electrocardiogram [ECG] [EKG]; K21.9 Gastro-esophageal reflux disease without esophagitis; R00.0 Tachycardia, unspecified; E87.6 Hypokalemia; D72.828 Other elevated white blood cell count; R06.02 Shortness of breath; I11.0 Hypertensive heart disease with heart failure